=== PATIENT | male | born 1945 | race Caucasian/White ===

== ENCOUNTER 2018-09-20 07:04 | Day surgery (SDC) | payer OTHER ==
[2018-09-18 15:20] LABS: BASOPHILS % (AUTO) 0.4 % (0.0-5.0); EOSINOPHILS % (AUTO) 2.1 % (0.0-8.0); HEMATOCRIT 44.1 % (42-54); MEAN CORPUSCULAR HEMOGLOBIN 31.4 pg (27.0-33.0); MEAN CORPUSCULAR HGB CONC 33.8 g/dL (32.0-36.0); MEAN CORPUSCULAR VOLUME 92.9 fL (79-99); MONOCYTES % (AUTO) 11.1 % (3.0-13.0); NEUTROPHILS % (AUTO) 58.4 % (40.0-77.0); NUCLEATED RED BLOOD CELLS 0.1 % (0.0-0.19); PLATELET COUNT (AUTO) 215 K/uL (130-400); RED BLOOD CELL COUNT(AUTO) 4.75 MIL/uL (4.50-6.20); RED CELL DISTRIBUTION WIDTH 14.5 % (11.0-15.5); WHITE BLOOD COUNT (AUTO) 6.9 K/uL (4.8-10.8)
[2018-09-18 15:23] VITALS: BP 116/72
[2018-09-18 15:30] LABS: CREATININE 1.3 mg/dL (0.5-1.5); POTASSIUM 4.7 mmol/L (3.5-5.1)
[2018-09-18 15:44] LABS: INR 1.35 (0.85-1.15); PARTIAL THROMBOPLASTIN TIME 32.7 SEC (26.3-35.5); PROTHROMBIN TIME 14.1 SEC (9.6-11.6)
--- NOTE | 2018-09-18 17:18 | NUR ---
NOTE EKG HAS BEEN REVIEWED BY DR MEAD, NO FURTHER ORDERS GIVEN
--- NOTE | 2018-09-19 16:31 | NUR ---
ABNORMAL LABS REPORTED ABNORMAL LABS TO DR. SHEA- PT AND PTT. ORDERS TO REDRAW PT / INR ON ARRIVAL.
[~2018-09-20] VITALS: Ht 167.6 cm; Wt 79.5 kg
[2018-09-20] VITALS (19 sets, daily range): BP systolic 110–156; BP diastolic 63–97
[2018-09-20] MEDS: CEFTRIAXONE SODIUM 1 GM IVP SCH ×2 (06:00→09:50)
[~2018-09-20 07:04] MED LIST: AMIO200T5 PO; CARV25TA PO; FAMO40TA7 PO; LEVO75TA10 PO; LISI-613 PO; LISI40TA4 PO; SIMV20TA6 PO; WARF-57 PO
[2018-09-20 08:00] LABS: INR 1.12 (0.85-1.15); PROTHROMBIN TIME 11.7 SEC (9.6-11.6)
[2018-09-20] MEDS ORDERED: PROPOFOL 10 MG/ML 20ML VIAL IV ONE (08:43)
[2018-09-20] MEDS ORDERED: NEOSTIGMINE 5MG/5ML SYR IV ONE (08:43)
[2018-09-20] MEDS ORDERED: DEXAMETHASONE SOD PHOSPHATE 10MG/ML 1ML VIAL ONE ×2 (08:43→10:17)
[2018-09-20] MEDS ORDERED: LIDOCAINE PF 2% 5ML ABBOJECT ONE ×2 (08:43→10:18)
[2018-09-20] MEDS ORDERED: ROCURONIUM 10MG/1ML SYR 10 MG/ML ML ONE (08:43)
[2018-09-20] MEDS ORDERED: MIDAZOLAM HCL 1 MG/ML 2ML VIAL ONE (08:43)
[2018-09-20] MEDS ORDERED: GLYCOPYRROLATE 1 MG/5 ML SYRINGE ONE (08:43)
[2018-09-20] MEDS ORDERED: ONDANSETRON HCL 4 MG/2 ML VIAL ONE (08:43)
[2018-09-20] MEDS ORDERED: FENTANYL CITRATE PF 50 MCG/1 ML 2ML VIAL ONE (08:44)
[2018-09-20] MEDS ORDERED: LACTATED RINGERS 1000ML 1,000 ML IV ONE (08:51)
[2018-09-20] MEDS ORDERED: LIDOCAINE HCL 2% JELLY 5 ML ONE (10:18)
[2018-09-20] MEDS ORDERED: OPIUM/BELLADONNA ALKALOIDS 1 EACH SUPP.RECT RC ONE (10:51)
[2018-09-20] MEDS ORDERED: SIMV40TA5 PO (11:11)
[2018-09-20] MEDS ORDERED: PHENAZOPYRIDINE HCL 200 MG TABLET ONE (11:51)
== END 2018-09-20 13:05 | disposition home or self-care (01) ==
LOC: DAH 07:04
PROVIDERS: ATTEND Urology
DX: N32.0 Bladder-neck obstruction (principal); Z85.46 Personal history of malignant neoplasm of prostate; Z98.890 Other specified postprocedural states; N35.919 Unspecified urethral stricture, male, unspecified site; Z95.0 Presence of cardiac pacemaker; Z79.899 Other long term (current) drug therapy; Z85.51 Personal history of malignant neoplasm of bladder; I12.9 Hypertensive chronic kidney disease with stage 1 through stage 4 chronic kidney disease, or unspecified chronic kidney disease; N18.9 Chronic kidney disease, unspecified; E05.90 Thyrotoxicosis, unspecified without thyrotoxic crisis or storm
CPT/HCPCS: 36415 ×2; 52276; 80048; 85025; 85610 ×2; 85730; 93005; A4344; A4354; A4358; A4510; A4600; C1769; J0696; J1100 ×2; J2001 ×2; J2250; J2405; J2704; J2710; J3010; J3490; J7120 ×2